=== PATIENT | male | born 1935 | race Caucasian/White ===

== ENCOUNTER 2016-09-30 01:19 | Day surgery (SDC) | payer MEDICARE ==
[~2016-09-30] VITALS: Ht 167.6 cm; Wt 77.2 kg
[2016-09-30] VITALS (13 sets, daily range): BP systolic 110–162; BP diastolic 45–90; PULSE 70–85; RESP 16–24; O2SAT 90–92
[~2016-09-30 01:19] MED LIST: AMLO10TA3 PO; ASCO100089 PO; ASPI-973 PO; CALC-140 PO; CHOL100045 PO; DOXA2TAB52 PO; LUTE20CA8 PO; OMEG1CAP25 PO; ROSU40TA PO; VIT1CAPS46 PO
[2016-09-30] MEDS ORDERED: 0.9% Sodium Chloride 1,000 ML IV SCH (08:20)
[2016-09-30] MEDS ORDERED: Methohexital 10 mg/mL 50 mL Inj IV PRN (08:20)
[2016-09-30] MEDS ORDERED: fentaNYL-PF 50 mCg/mL 2 mL Inj IVPUSH PRN (08:20)
[2016-09-30 08:24] LABS: BASOPHILS % (AUTO) 0.4 % (0-3); EOSINOPHILS % (AUTO) 0.7 % (0-5); MONOCYTES % (AUTO) 10.3 % (4-12); Mean Corpuscular Hemoglobin 31.4 pg (27.0-35.0); Mean Corpuscular Volume 92.5 fL (81-100); NEUTROPHILS % (AUTO) 78.7 % (40-74); Platelet Count 193 bil/L (150-400)
[2016-09-30 08:41] LABS: INR 1.46 ratio
[2016-09-30] MEDS ORDERED: FLAX100038 PO (08:42)
[2016-09-30] MEDS ORDERED: WARF5TAB7 PO ×2 (08:42→10:22)
[2016-09-30] MEDS ORDERED: FURO-128 PO (10:22)
[2016-09-30] MEDS ORDERED: WARF2TAB7 PO (10:22)
--- NOTE | 2016-09-30 11:23 | NUR ---
Discharge Pt discharged to home with family after successful cardioversion post BERTRAND. VSS on RA at time of discharge, VSS throughout procedure and recovery. Pt and pt family stated verbal understanding of discharge instructions regarding changes to medications signs of worsening condition and follow up appointments. Pt and family left with personal belongings, discharge paperwork, IV dc'd intact at approximatly 1050.
--- NOTE | 2016-09-30 16:22 | DRSVH ---
[facility] [address] [place] [address] Echocardiogram Report Name: KENNY PATEL Date : 09/30/2016 Height: 66 in Hospital Exam Location: [facility] Weight: 17 6 lb Gender: Male BSA: 1.9 m2 : 1935 Age: 80 yrs BP: 143/45 mmHg Reason For Study: Atrial flutter Performed By: Lynda Huynh Referring Physician: AYO CORREIA Interpretation Summary Afib with controlled rate. Normal LV size and wall thickness; there is normal EF - 55-60%. Aortic valve is replaced with stented bioprosthesis; there is good leaflet excursion with no hemodynamically significant aortic stenosis. Mitral valve leaflets are normal; there is mild-moderate central mitral regurgitation. No evidence of JACQUELINE thrombus. No prior BERTRAND available for comparison. Procedure: Informed consent for Transesophageal Echocardiogram, and use of a contrast agent as needed, was obtained prior to the procedure. The patient was brought to the [facility] in a fasting state. The transesophageal probe was passed without difficulty. There were no complications. Left Ventricle: The ejection fraction is estimated to be 55-60%. Atria: The interatrial septum is intact with no evidence for an atrial septal defect. Mitral Valve: There is mild to moderate mitral regurgitation. Aortic Valve: The aortic valve is trileaflet. Leaflet mobility is moderately reduced. There is trace aortic regurgitation. Great Vessels: There is aortic root sclerosis/calcification. Mild atherosclerotic plaque(s) in the descending aorta. MMode/2D Measurements & Calculations AoV Openin.89 cm Doppler Measurements & Calculations TR max jules: 294.6 cm/sec TR max P.7 mmHg Reading Physician:04:08 PM
--- NOTE | 2016-10-03 10:45 | PROCED ---
[address] [address] PROCEDURE NOTE PATIENT: KENNY PATEL : 1935 MR#: [id number] ADMIT: 09/30/2016 JOB ID: [id number] DATE OF SERVICE: 09/30/2016 PROCEDURE PERFORMED: dccv POSTOPERATIVE DIAGNOSIS(ES): afib PREOPERATIVE DIAGNOSIS(ES): afib SURGEON: Edna Neville MD CHIEF COMPLAINT: Shortness of breath. METHOD: Following informed consent, the patient was sedated with Versed and fentanyl. BERTRAND was performed. There was no evidence of left atrial appendage thrombus. The patient was sedated with Brevital, and 200 joules of synchronized energy was delivered. Normal sinus rhythm was restored after cardioversion. No complications in the immediate postprocedure period. PLAN: 1. Enrollment in [facility]. Follow up in [facility] October 03, 2016. 2. Start furosemide 40 mg daily for pulmonary congestion and follow up with mid-level provider in one week and with Cardiology in two weeks. Thank you very much for the opportunity to evaluate this patient. MORGAN
[2016-11-24] MEDS ORDERED: AMLO10TA3 PO (16:07)
== END 2016-09-30 23:59 | disposition home or self-care (01) ==
LOC: SOUO 01:19
PROVIDERS: ATTEND Internal Medicine
DX: I48.92 Unspecified atrial flutter (principal); Z95.2 Presence of prosthetic heart valve; Z95.1 Presence of aortocoronary bypass graft; Z79.82 Long term (current) use of aspirin; I25.10 Atherosclerotic heart disease of native coronary artery without angina pectoris; I12.9 Hypertensive chronic kidney disease with stage 1 through stage 4 chronic kidney disease, or unspecified chronic kidney disease; N18.9 Chronic kidney disease, unspecified
CPT/HCPCS: 36415; 80048; 85025; 85610; 92960; 93005; 94799; C8925; J2250; J3010; J7030

== ENCOUNTER 2016-11-25 01:10 | Day surgery (SDC) | payer MEDICARE ==
[2016-11-25] VITALS (13 sets, daily range): BP systolic 146–186; BP diastolic 46–56; PULSE 45–55; RESP 12–18; O2SAT 90–97
[~2016-11-25] VITALS: Ht 167.6 cm; Wt 78.9 kg
[~2016-11-25 01:10] MED LIST changes: +WARF5TAB7 PO
[2016-11-25 06:25] LABS: BASOPHILS % (AUTO) 0.4 % (0-3); EOSINOPHILS % (AUTO) 1.6 % (0-5); MONOCYTES % (AUTO) 9.5 % (4-12); Mean Corpuscular Volume 91.3 fL (81-100); NEUTROPHILS % (AUTO) 72.8 % (40-74); Platelet Count 174 bil/L (150-400)
[2016-11-25 06:43] LABS: INR 2.6 ratio
--- NOTE | 2016-11-25 06:47 | NUR ---
Patient admitted for ablation with Dr Nj. He is ambulatory, accompanied by his spouse and daughter.
[2016-11-25] MEDS ORDERED: Heparin 1,000 Unit/mL 10 mL Inj ONE ×2 (07:53→08:25)
[2016-11-25] MEDS ORDERED: 0.9% Sodium Chloride 1,000 ML ONE ×2 (07:54→08:27)
[2016-11-25] MEDS ORDERED: fentaNYL-PF 50 mCg/mL 2 mL Inj ONE ×2 (08:07→09:26)
[2016-11-25] MEDS ORDERED: Vancomycin Inj 1,000 MG in IV Premix 1 EACH IV ONE (08:45)
[2016-11-25] MEDS ORDERED: Ondansetron 2 mg/mL 2 mL Inj IVPUSH PRN (10:20)
[2016-11-25] MEDS ORDERED: HYDROcodone-APAP 5-325 mg Tablet PO PRN (10:20)
--- NOTE | 2016-11-25 10:55 | PROCED ---
[address] [address] PROCEDURE NOTE PATIENT: KENNY PATEL : 1935 MR#: [id number] ADMIT: 11/25/2016 JOB ID: [id number] DATE OF SERVICE: 11/25/2016 PREOPERATIVE DIAGNOSIS(ES): 1. Paroxysmal isthmus flutter. 2. Aortic valve replacement. 3. Coronary artery bypass grafting. POSTOPERATIVE DIAGNOSIS(ES): 1. Paroxysmal isthmus flutter. 2. Aortic valve replacement. 3. Coronary artery bypass grafting. PROCEDURES PERFORMED: 1. Comprehensive electrophysiology study with left atrial pacing recording via the coronary sinus catheter. 2. Atrial flutter ablation (cavotricuspid isthmus ablation; atrial ablation). 3. Fluoroscopy. Electrocardiogram. 4. Electronically mapping using the Kiptronic 3 system. SURGEON: Behzad Nj M.D., electrophysiology attending. CHAIN MAKER MACHINE: Aaron Bianchi Mary Garut. ANESTHESIA: Bolus dosing of Versed and fentanyl were utilized for an appropriate level of sedation. INDICATION: The patient is a pleasant 81-year-old man with preserved LV function, aortic valve replacement, bypass grafting who has symptomatic atrial flutter. After discussion of the risks and benefits of catheter based mapping and ablation, he opted to proceed. PROCEDURAL DESCRIPTION: Following informed consent, the patient was taken to the EP laboratory in a fasting nonsedated state, where he was prepped in the usual sterile fashion. The right inguinal region was infiltrated with 1% lidocaine. Then, using modified Seldinger technique, one 8 and two 7-Macedonian sheaths were inserted into the right femoral vein. Under fluoroscopic guidance, a deflectable decapolar catheter was advanced into the coronary sinus with the most proximal bipole at the os of the sinus. A 20 pole Livewire catheter was used to encircle the tricuspid anulus. The patient was in sinus rhythm at the onset of the case. A J curve Smart Touch irrigated ablation catheter was brought to the field and used for a three-dimensional of the right atrium and tricuspid annulus including the cavotricuspid isthmus. The ablation catheter was then redeployed through an SR0 sheath after exchange over a long wire. Pacing was undertaken from the coronary sinus os while monitoring the atrial activation pattern on the Livewire catheter. A linear series of ablations was performed from the ventricular to the IVC aspect of the cavotricuspid isthmus ultimately leading to medial to lateral block as seen as a shift in activation on the Livewire catheter. A lateral to medial block was confirmed. A 20 minute waiting period was undertaken during which bidirectional block was confirmed. All catheters and sheaths were removed. Manual pressure was held for hemostasis. During course of this study, we did complete a comprehensive electrophysiology study with right atrial pacing and recording, right ventricular pacing and recording, His bundle recording coronary sinus catheter. All catheter sheaths were removed. Manual pressure was held for hemostasis. The patient was transferred to the [facility] for monitoring, bedrest and discharge. COMPLICATIONS: None. ESTIMATED BLOOD LOSS: Negligible. FINDINGS: 1. Baseline rhythm is sinus with an RR interval of 1076 msec, OK 218 msec, QRS 96 msec, QT 437 msec. 2. Intracardiac intervals: AH interval 168 msec, HV 35 msec. 3. Retrograde conduction: No VA conduction was seen. 4. Cavotricuspid isthmus ablation as described above with bidirectional block, specifically trans isthmus time is 176 msec in both directions. IMPRESSION: Successful cavotricuspid isthmus ablation for typical atrial flutter. PLAN: 1. Bed rest x 4 hours. 2. Continue current medication regimen. 3. Monitoring and discharge from the [facility]. 4. Followup with Diogenes Jaquez in four weeks. ATTENDING STATEMENT: Behzad Nj MD, electrophysiology attending, was present for and supervised/performed all aspects of this procedure.
== END 2016-11-25 23:59 | disposition home or self-care (01) ==
LOC: SOUO 01:10
PROVIDERS: ATTEND Internal Medicine Cardiovascular Disease
DX: I48.3 Typical atrial flutter (principal); I25.10 Atherosclerotic heart disease of native coronary artery without angina pectoris; I10 Essential (primary) hypertension; Z95.1 Presence of aortocoronary bypass graft; Z95.3 Presence of xenogenic heart valve; Z79.82 Long term (current) use of aspirin; Z79.01 Long term (current) use of anticoagulants
CPT/HCPCS: 36415; 80048; 85025; 85610; 93005; 93613; 93621; 93653; 99152; 99153; C1730; C1731; C1732; C1893; J0131; J1644; J2250; J3010; J7030